=== PATIENT | male | born 1960 | race Caucasian/White ===

== ENCOUNTER 2019-05-09 17:22 | Inpatient (IN) ==
[2019-05-09] MEDS ORDERED: NS 500 ML IV ONE (17:59)
[2019-05-09 18:00] LABS: BASO# 0.03 X1000 (0.0-0.2); BASO% 0.9 % (0.0-0.8); EOS# 0.03 X1000 (0.0-0.7); EOS% 0.9 % (0.0-10.0); HEMATOCRIT 18.2 % (42.0-52.0); HEMOGLOBIN 4.9 g/dL (14.0-18.0); MCHC 26.9 g/dL (33-37); MCV 59.3 FL (81-99); MONO# 0.42 X1000 (0.11-0.59); MONO% 12.6 % (1.7-9.3); MPV 8.6 FL (7.4-10.4); NEUT# 2.05 X1000 (1.4-6.5); NEUT% 61.6 % (42.2-75.2); PLT 424 X1000 (130-400); RBC 3.07 XMIL (4.7-6.1); RDW 19.3 % (11.5-14.5); WBC 3.33 X1000 (4.8-10.8)
[2019-05-09 18:12] LABS: AGAP 16; ALB/GLOB RATIO 1.4; ALBUMIN 4.3 g/dL (3.5-5.0); ALKALINE PHOSPHATASE 77 U/L (32-122); BUN 12 mg/dL (8-22); CALCIUM 9.1 mg/dL (8.8-10.2); CHLORIDE 95 mmol/L (98-107); COSMO 264; CREATININE 1.1 mg/dL (0.7-1.2); ESTIMATED GFR > 60; GLUCOSE 122 mg/dL (70-104); GOT 14 U/L (10-34); GPT 11 U/L (10-44); POTASSIUM 3.6 mmol/L (3.5-5.1); SODIUM 131 mmol/L (136-145); TCO2 20 mmol/L (25-35); TOTAL BILIRUBIN 0.42 mg/dL (0.20-1.00); TOTAL PROTEIN 7.4 g/dL (6.3-8.3)
--- NOTE | 2019-05-09 18:37 | PROVIDER DOCUMENTATION ---
HPI-General Adult - General Chief Complaint: Abnormal Lab[s] Stated Complaint: DR LASHONDA...LABS... Time Seen by Provider: 05/09/19 18:32 Source: patient, family Allergies/Adverse Reactions: Patient Allergies Allergy/AdvReac Type Severity Reaction Status Date / Time No Known Allergies Allergy Verified 05/09/19 18:50 Home Medications: Home Medication List Medication Instructions Recorded Confirmed Last Taken Type Phenytoin 100 mg PO DAILY 05/09/19 05/10/19 Unknown History Phenytoin [Dilantin] 200 mg PO QHS 05/09/19 05/10/19 Unknown History Primidone [Mysoline] 250 mg PO DAILY 05/09/19 05/09/19 Unknown History Primidone [Mysoline] 500 mg PO HS 05/09/19 05/09/19 Unknown History - History of Present Illness -Gen Adult Nature of Presenting Problems: Patient is a 58 year old white male with history of seizure disorder, blindness, and cognitive dysfunction who presents for further evaluation of severe anemia. Just seen at PCP office today and referred to ED for admission. Denies rectal bleeding, hemetemesis. Review of Systems - Adult - REVIEW OF SYSTEMS - ADULT Constitutional: reports: see HPI Eyes: reports: no symptoms reported Ears, Nose, Mouth & Throat: reports: no symptoms reported Cardiovascular: denies: chest pain Respiratory: denies: shortness of breath Gastrointestinal: denies: abdominal pain, nausea, vomiting Genitourinary: denies: dysuria Musculoskeletal: reports: no symptoms reported Integumentary: reports: no symptoms reported Neurological: reports: no symptoms reported Psychiatric: reports: see HPI Endocrine: reports: no symptoms reported Hematologic/Lymphatic: reports: see HPI Allergic/Immunologic: reports: no symptoms reported All Other Systems: Reviewed and Negative Past History - Adult - PAST MEDICAL HISTORY-ADULT Review of Records: reports: Old Records Reviewed, Nursing Assessment Review, Medications Reviewed, Social history reviewed & non-contributory. Major Childhood Illnesses: reports: history unknown Physical Exam-General - PHYSICAL EXAM-ADULT Initial Vital Signs Reviewed: Yes - CONSTITUTIONAL General Appearance: alert, no apparent distress, other (ambulatory, no acute distress, pale oral mucosa,cognitive dysfunction) - EYES Eyes: PERRL/EOMI - HEAD, EARS, NOSE, MOUTH & THROAT HENMT: moist mucous membranes - NECK Neck: non-tender, full range of motion, supple - RESPIRATORY Respiratory: lungs clear - CARDIOVASCULAR Cardiovascular: regular rate, rhythm - GASTROINTESTINAL (ABDOMEN) Abdominal Exam: non tender, soft - LYMPHATIC Lymphatic: no adenopathy - MUSCULOSKELETAL Back Exam: normal inspection, no CVA tenderness Extremity: normal range of motion, non-tender Peripheral Pulses: radial (R): 2+, radial (L): 2+ - SKIN Integumentary: pallor - NEUROLOGIC Neurologic: grossly normal, no motor/sensory deficits - PSYCHIATRIC Psych/Mental Status: oriented x 3, other (cognitive dysfunction) Progress - PLAN OF CARE/RESULTS Progress/Plan/Lab Results: Vital Signs - 8 hr 05/09/19 17:36 Temperature 97.8 F Pulse Rate 94 H Respiratory Rate 16 Blood Pressure 146/76 O2 Sat by Pulse Oximetry 100 Laboratory Results - last 24 hr 05/09/19 05/09/19 17:40 17:40 WBC 3.33 L RBC 3.07 L Hgb 4.9 L* Hct 18.2 L MCV 59.3 L MCH 16.0 L MCHC 26.9 L RDW Std Deviation 19.3 H Plt Count 424 H MPV 8.6 Immature Gran % (Auto) 0.0 Neut % (Auto) 61.6 Lymph % (Auto) 24.0 [place] % (Auto) 12.6 H Eos % (Auto) 0.9 Baso % (Auto) 0.9 H Immature Gran # (Auto) 0.00 Neut # (Auto) 2.05 Lymph # (Auto) 0.80 L [place] # (Auto) 0.42 Eos # (Auto) 0.03 Baso # (Auto) 0.03 Sodium 131 L Potassium 3.6 Chloride 95 L Carbon Dioxide 20 L Anion Gap 16 BUN 12 Creatinine 1.1 Estimated GFR/1.73 m2 > 60 BUN/Creatinine Ratio 11 Glucose 122 H Calculated Osmolality 264 Calcium 9.1 Total Bilirubin 0.42 AST 14 ALT 11 Alkaline Phosphatase 77 Total Protein 7.4 Albumin 4.3 Globulin 3.1 Albumin/Globulin Ratio 1.4 Orders Category Date Time Status Transfuse .Give-Transfuse Care 05/09/19 17:59 Active CBC WITH ELECTRONIC DIFF [HEME] Stat Lab 05/09/19 17:40 Completed CMP [COMPREHENSIVE METABOLIC PANEL] [CHEM] Stat Lab 05/09/19 17:40 Completed LRPC (RED CELLS) [BBK] Stat Lab 05/09/19 18:00 Uncollected Stool [OCCULT BLOOD SCREENING] [STOOL] Stat Lab 05/09/19 18:32 Uncollected TYPE & SCREEN [BBK] Stat Lab 05/09/19 17:41 Results 0.9% Sodium Chloride Inj [Ns] 500 ml Med 05/09/19 17:59 Discontinued IV As Directed mls/hr Result Diagrams: 05/10/19 07:05 05/10/19 07:05 Departure - Departure Date of Disposition Decision: 05/09/19 Time of Disposition Decision: 21:27 DIAGNOSIS: Severe anemia Disposition: ADMITTED INPATIENT 09 Certified Medical Emergency: Emergent Condition: Stable - Critical Care Note This patient required my direct & personal management of CC.: No Attestation - Physician/ STEFFANIE Attestation Patient care was provided by Advanced Practice Provider:: No The physician spent face to face time with patient:: Yes Advanced Practice Provider documentation review:: Supervising physician onsite and consulted in the evaluation and care of this patient. The physician did have a face to face encounter with the patient.
[2019-05-09 19:25] LABS: INR 1.12; PROTIME 14.6 Seconds (11.0-16.0)
[2019-05-09 19:31] LABS: IRON SATURATION 3 %; TIBC 389 ug/dL; TOTAL IRON 13 ug/dL (53-167); UNBOUND IRON 376 ug/dL (112-346)
--- NOTE | 2019-05-09 20:55 | Diag Imaging Result Doc PS360 ---
EXAM: CHEST-PORTABLE HISTORY: Exertional Dyspnea TECHNIQUE: Chest single view COMPARISON: None. FINDINGS: The lungs are well expanded. The heart is not enlarged. The vessels are not distended. There are no infiltrates. No effusion identified. Small hiatal hernia. IMPRESSION: Negative exam. Electronically signed by Russ Wilson 05/09/2019 8:53 PM
--- NOTE | 2019-05-09 21:32 | HISTORY AND PHYSICAL ---
PRIMARY CARE PROVIDER: The patient does not have a primary care provider, though his neurologist is Dr. Norman and his parents report he usually manages all his major medical issues. DATE AND TIME: 05/09/2019 at 2000. CHIEF COMPLAINT: Abnormal labs. HISTORY OF PRESENT ILLNESS: Mr. 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 He was actually at Dr. Norman's office for his routine yearly checkup and blood work and was noted to have anemia with a hemoglobin of 4.9 and hematocrit of 18.2. He was sent to the ER for further evaluation and transfusion. His mother and father were present at bedside. They report that over the last few weeks that he has been more tired, has not had a lot of energy. The patient reports this as well. He also reports that he has had some exertional dyspnea, and dizziness at times. Though he denies any abdominal pain, nausea, vomiting, or diarrhea. He denies any hematemesis, hematochezia or melena. He also denies any obvious hematuria. Other than his dizziness, he denies any headache or feelings of lightheadedness. He denies any chest pain, dysuria, urinary frequency or pain, numbness, tingling or swelling in extremities. They deny him having any previous history of any gastrointestinal bleeding, though his parents did report that last year during his routine physical at Dr. Norman's office that he was noted to have a low hemoglobin then, they believed to be 8. The only illnesses that he has had recently was an upper respiratory infection for which he did get a prescription for what appears to be doxycycline, prednisone and Tessalon Perles on 04/17/2019, though they report his symptoms have cleared up. He does take Dilantin and primidone. The other than this, he has not had any other new medications and they have not made any recent adjustments to any of his medicines. His mother states that he has taken Dilantin and primidone since he was a baby. Upon evaluation in the ER, hemoglobin, hematocrit were, as mentioned above, 4.9 and 18.2. Though, PT and INR were within normal limits. Electrolytes were pretty unremarkable except for he did have a slightly low sodium at 131. He was placed for inpatient admission. REVIEW OF SYSTEMS: A 14 point review of systems was conducted with the patient. All were negative except for pertinent positives mentioned above in HPI. PAST MEDICAL HISTORY: 1. Seizures. 2. Blindness in bilateral eyes. 3. Cognitive dysfunction. PAST SURGICAL HISTORY: Right hip surgery secondary to a fall and fracture in 1996. SOCIAL HISTORY: The patient does live with his parents. He does have a history of cognitive dysfunction. He has no known history of tobacco, alcohol or illicit drug use. FAMILY HISTORY: Positive for his mother having a history of hypertension. His father has a history of heart problems and has had a myocardial infarction. ALLERGIES: Patient reports no known allergies. HOME MEDICATIONS: 1. Dilantin 50 mg p.o. daily. 2. Dilantin 100 mg p.o. at bedtime. 3. Primidone 250 mg p.o. daily. 4. Primidone 500 mg p.o. at bedtime. DIAGNOSTIC DATA/LABORATORY RESULTS: White blood cell count is 3330. Red blood cell count is 3.07, hemoglobin for 4.9, hematocrit 18.2, platelet count is 424,000. PT is 14.6, INR 1.12. Sodium 131, potassium 3.6, chloride 95, serum bicarb 20, BUN is 12, creatinine 1.1 with GFR greater than 60, glucose 122, calcium 9.1. Liver function tests within normal limits. Pending diagnostic studies at this time are the EKG, chest x-ray, urinalysis, Hemoccult stool and anemia profile. PHYSICAL EXAMINATION: VITAL SIGNS: Temperature 98.1 degrees, heart rate 85, respirations 18, blood pressure 134/81, oxygen saturation is 100% on room air. GENERAL: Mr. Mayer is a very pleasant 58-year-old male who was resting in the ER stretcher. He was in no acute distress. He was awake, alert, and able to answer questions appropriately. HEENT: Head is atraumatic, normocephalic. Pupils are equal, round, reactive to light, 3 mm bilaterally and brisk. Conjunctivae were pale. Oral mucosa was moist. Oropharynx is clear. NECK: Supple. Trachea midline. CARDIOVASCULAR: Patient has S1-S2 present. No murmurs, gallops, rubs appreciated with a regular rate and rhythm. PULMONARY: Patient has symmetrical chest expansion bilaterally. Lung sounds are clear to auscultation in bilateral full amos. ABDOMEN: Was soft, nontender, nondistended. Bowel sounds are present in all 4 quadrants, were normoactive. EXTREMITIES: No cyanosis or edema noted. Pulse, motor, and sensory were intact in all extremities radial and pedal pulses were 2+ bilaterally. INTEGUMENTARY: Skin color is slightly pale, though is dry and intact. NEUROLOGICAL: Patient is alert and oriented to person, place, time, and situation. He is able to move all extremities. He does have a known cognitive dysfunction, though at this time there are no focal neurological deficits noted. ASSESSMENT AND PLAN: 1. Severe anemia. The patient is mildly symptomatic. He has been reporting that he has been very fatigued. He has had some occasional dizziness and exertional dyspnea. He does have normal vital signs. He is hemodynamically stable. We are going to transfuse him with 2 units of packed red blood cells. We have ordered an anemia profile as well as a Hemoccult stool. Since he did report some dizziness and exertional dyspnea, we will do a chest x-ray and an EKG. We will await the results of pending diagnostic studies and recheck a CBC in the morning. We will continue to follow. 2. History of seizures. We will continue his previously prescribed Dilantin and primidone. We have ordered a Dilantin level. 3. History of cognitive dysfunction, aware. 4. Deep vein thrombosis prophylaxis. We provided with sequential compression devices. The patient will be placed on the medical floor telemetry. Strict intake and output, vital signs q.4 hours. We will provide some gentle hydration with normal saline at 75 mL per hour x1 bag. Further orders and recommendations pending hospital course, diagnostic studies, and physician evaluation. Dictated by DAMI Lee for Luis Kidd MD I have performed a face to face diagnostic evaluation. Labs/ Xrays- reviewed. Exam Chest- clear, CV- regular, A/P- Anemia- Admit, Monitor H/H- Transfuse [address] Kidd cc: Luis Kidd MD [facility]
--- NOTE | 2019-05-09 21:42 | EKG Report ---
Test Performed on : 05/09/2019 8:57:55 PM Test Reason : Dizziness,Exertional Dyspnea Blood Pressure : / mmHG Vent. Rate : 079 BPM Atrial Rate : 079 BPM P-R Int : 118 ms QRS Dur : 082 ms QT Int : 408 ms P-R-T Axes : 078 069 022 degrees QTc Int : 467 ms Normal sinus rhythm. Nonspecific ST abnormality Abnormal ECG No previous ECGs available Unconfirmed Result
[2019-05-09] MEDS ORDERED: ZOFRAN IV PRN (21:55)
[2019-05-09] MEDS ORDERED: NS 1,000 ML IV ONE (21:55)
[2019-05-09] MEDS ORDERED: TYLENOL PO PRN (21:55)
[2019-05-09 23:56] LABS: URINE SOURCE CLEAN CATCH
[2019-05-09 23:58] LABS: BILIRUBIN URINE NEGATIVE (NEGATIVE); BLOOD URINE NEGATIVE (NEGATIVE); COLOR STRAW; GLUCOSE URINE NEGATIVE (NEGATIVE); KETONE URINE NEGATIVE (NEGATIVE); LEUKOCYTES URINE NEGATIVE (NEGATIVE); NITRITE URINE NEGATIVE (NEGATIVE); PH URINE 6.5; PROTEIN URINE NEGATIVE (NEGATIVE); SP GRAVITY URINE 1.005; TURBIDITY URINE CLEAR (CLEAR); UROBILINOGEN URINE NORMAL (NORMAL)
[2019-05-10] LABS: UR EPITHELIAL CELLS <10 /HPF (<10); URINE BACTERIA NEGATIVE /HPF; URINE RBC <10 /HPF (<10); URINE WBC <10 /HPF (<10)
[2019-05-10] MEDS ORDERED: DILANTIN PO SCH ×4 (00:15→21:00)
[2019-05-10] MEDS ORDERED: NS 500 ML ONE (00:28)
[2019-05-10] MEDS: MYSOLINE PO SCH ×3 (00:45→21:18)
[2019-05-10 07:27] LABS: BASO# 0.03 X1000 (0.0-0.2); BASO% 0.8 % (0.0-0.8); EOS# 0.02 X1000 (0.0-0.7); EOS% 0.6 % (0.0-10.0); HEMATOCRIT 26.1 % (42.0-52.0); HEMOGLOBIN 7.8 g/dL (14.0-18.0); LYMPH% 25.4 % (20.5-51.1); MCH 19.5 PG (27-31); MCHC 29.9 g/dL (33-37); MCV 65.1 FL (81-99); MONO# 0.54 X1000 (0.11-0.59); MONO% 15.2 % (1.7-9.3); MPV 9.2 FL (7.4-10.4); NEUT# 2.06 X1000 (1.4-6.5); PLT 391 X1000 (130-400); RBC 4.01 XMIL (4.7-6.1); WBC 3.55 X1000 (4.8-10.8)
[2019-05-10 07:48] LABS: AGAP 12; BUN 7 mg/dL (8-22); CALCIUM 9.3 mg/dL (8.8-10.2); CHLORIDE 103 mmol/L (98-107); COSMO 274; ESTIMATED GFR > 60; GLUCOSE 97 mg/dL (70-104); POTASSIUM 3.7 mmol/L (3.5-5.1); SODIUM 138 mmol/L (136-145); TCO2 23 mmol/L (25-35)
--- NOTE | 2019-05-10 08:53 | PROGRESS NOTE ---
DATE: 05/10/2019 SUBJECTIVE: Mr. Mayer apparently was at Dr. Norman's office, and they checked blood work and hemoglobin was very low. This is a 58-year-old with a past medical history of seizures and cognitive dysfunction. He does have blindness in both eyes. He was at Dr. Norman's office for routine checkup and workup, and noted anemia with hemoglobin of 4.9 and hematocrit 18.2. He was sent to the emergency room for evaluation. The father and mother were present, and reported that over the past few weeks he has been tired and not had much energy. Patient reports this as well. He has had some exertional dyspnea and dizziness at times. He denies abdominal pain, nausea, vomiting, or diarrhea. Denied any hematemesis. He has not felt bad at all. PAST MEDICAL HISTORY: Once again, seizures, blindness in both eyes, and cognitive dysfunction. He lives with his parents. Right hip surgery secondary to fall and fracture in 1996. PHYSICAL EXAMINATION: General: On exam today, he is awake, alert and pleasant. No complaints. Vital Signs: Temperature 98.3 degrees, pulse 72, respirations 18, and blood pressure 123/73. HEENT: Pupils are equal and round. Lungs: Clear in all lung amos. Cardiovascular: Regular rhythm and rate without murmur or S3. Abdomen: No abdominal tenderness. No distention. No pedal edema. LABORATORY: Blood count this morning, white count 3550, hematocrit 26, hemoglobin was 7.8 with an MCV of 65. Sodium 138, potassium 3.7, chloride 103 BUN 7, and creatinine 1.0 Urinalysis unremarkable. ASSESSMENT AND PLAN: I believe he was transfused 2 units of packed red blood cells. We will ask Gastroenterology to just evaluate. Most likely he has microcytic anemia from occult blood loss, and we will put him on some iron. His B12 was 197 and folate 6.7 so we need to supplement B12 and folate. We need to look at his thyroid functions, and check his iron studies. Ask Gastroenterology to see him. cc: Demetrius Lopez MD
[2019-05-10] MEDS: FOLIC ACID PO SCH ×2 (09:16→21:15)
[2019-05-10] MEDS: VITAMIN B-12 PO SCH (09:16)
[2019-05-10] MEDS ORDERED: PATIENT'S OWN MED PO SCH (09:30)
[2019-05-10] MEDS ORDERED: SODIUM CHLORIDE 0.9% INJ SCH (09:45)
--- NOTE | 2019-05-10 10:39 | Diag Imaging Result Doc PS360 ---
CT ABD/PELVIS W/IV CONT ONLY - 05/10/2019 INDICATION: Anemia COMPARISON: None FINDINGS: The lung bases are clear and the heart size is normal. There is a large hiatal hernia with over half of the stomach up in the chest. The liver, gallbladder, spleen, pancreas, adrenals, and kidneys are normal. There is moderate diffuse constipation throughout the colon. No bowel obstruction or inflammation. Urinary bladder, prostate, and rectum are normal. There is a right femoral neck stabilization therese in good position. There is advanced degeneration of the sacroiliac joints, with essentially complete fusion. There are moderate degenerative changes of the spine. No acute or suspicious bony lesion. IMPRESSION: Large hiatal hernia. Constipation. This exam was performed using automated exposure control, adjustment of mA or kV according to patient size, and/or use of iterative reconstruction technique Electronically signed by Pepe Waddell 05/10/2019 10:37 AM
[2019-05-10] MEDS: PROTONIX IV SCH ×2 (11:28→21:15)
[2019-05-10] MEDS ORDERED: GOLYTELY PO ONE (14:00)
--- NOTE | 2019-05-10 14:56 | GASTROENTEROLOGY CONSULTATION ---
DATE: 05/10/2019 REASON FOR CONSULTATION: Anemia. HISTORY OF PRESENT ILLNESS: Mr. Mayer is a 58-year-old, male with past medical history of seizures and cognitive dysfunction. He is legally blind bilaterally. He had been to Dr. Norman's office for his routine yearly checkup, and the blood work revealed that he had anemia with a hemoglobin of 4.9 and hematocrit of 18.2. He received 2 units of blood, his hemoglobin is 7.8 and 26.1. He came to the ER yesterday with his mother and father. They reported that 3 weeks back he had gone to the ER for cough and was on antibiotics and cough medicine. He received doxycycline, Tessalon, and prednisone. The patient has denied any nausea or vomiting. No fever or chills, but mentions that he has been weak and dizzy with shortness of breath. He has denied any headache. He has also denied any stomach problems. He has never had any GI bleed or any other health issues, other than his seizures, and he takes his Dilantin and primidone as his home medication. PAST MEDICAL HISTORY: Seizures, cognitive dysfunction, blindness in both eyes. PAST SURGICAL HISTORY: Right hip surgery due to a fall and fracture in 1996. ALLERGIES: No known drug allergies. SOCIAL HISTORY: The patient is single, lives with his parents. History of cognitive dysfunction. He has denied any tobacco or alcohol or illicit drug use. FAMILY HISTORY: Mother has hypertension and father has heart problems. HOME MEDICATIONS: Dilantin 100 mg PO am and 200 mg at bedtime. Primidone 250 mg PO am and 500 mg PO at bedtime. REVIEW OF SYSTEMS: As per HPI. Otherwise, 12 point review of systems is negative. PHYSICAL EXAMINATION: Vital Signs: Temperature 98.3 degrees, pulse is 72, respirations 18, blood pressure 123/73, oxygen saturation is 100% on room air. His weight is 156.4 pounds. BMI is 20.1 kg/m2. General: He is alert, oriented x3, in no acute distress, and he is answering all questions appropriately. HEENT: Pale conjunctivae. No icterus. PERRL. Neck: Supple. Cardiovascular: Regular rate and rhythm. No murmurs, rubs, or gallops heard on auscultation. Lungs: Clear to auscultation bilaterally in anterior and posterior amos. Abdomen: Soft, nontender, nondistended. active bowel sounds heard in all 4 quadrants. Extremities: No cyanosis, clubbing, or edema noted. 2+ pulses present bilaterally. Neurological: Alert, oriented x3. Nonfocal. He does have some cognitive dysfunction, but cranial nerves 2-12 grossly intact. LABS: WBC is 3.55, RBC 4.0, hemoglobin 7.8, hematocrit is 26.1, platelet count is 321,000. Sodium is 138, potassium is 3.7, chloride is 102, carbon dioxide is 20, anion gap is 12, BUN is 7, creatinine 1.0. Glucose is 97, calcium is 93. Urinalysis was negative. Chest x-ray shows negative exam. Abdominal CT and pelvis showed large hiatal hernia and constipation. ASSESSMENT: 1. Severe anemia. 2. Hiatal Hernia 3. Constipation 4. History of seizure. 5. History of cognitive dysfunction. 6. Legally blind. PLAN: We have ordered a CT scan. We plan to do an EGD and colonoscopy tomorrow. We will give patient on Protonix 40 IV BID for anemia. Patient is receiving IV fluids 75 mL/hour, folic acid and vitamin B 12 per PCP. He also gets Dilantin and Primidone for his seizure. His H & H was 4.9 and 18.2, now 7.8 and 26.1. He has received 2 units of blood and it has been trending upwards. We will continue to monitor his CBC and BMP. Further plan of care will be based on the EGD and colonoscopy findings. Discussed the risks, benefits, and alternatives of the procedure to patient and family members, patient and family members acknowledges understanding of the instructions and agree to proceed with the above plan of care. We will continue to follow the plan of care per primary care team. This plan was discussed with Dr. Gallego. Thank you for your consult. Please call us with any further questions or concerns. Dictated by DAMI Serrano for Goran Gallego MD cc: Goran Gallego MD I have seen and examined the patient myself and I agree with the above plan of care. Discussed the above with the patient and family at bedside and all questions were answered. Please call us with any further questions. [facility]
[2019-05-11 07:24] LABS: BASO# 0.07 X1000 (0.0-0.2); EOS# 0.08 X1000 (0.0-0.7); EOS% 2.3 % (0.0-10.0); HEMATOCRIT 24.8 % (42.0-52.0); HEMOGLOBIN 7.2 g/dL (14.0-18.0); IRON SATURATION 5 %; LYMPH# 1.01 X1000 (1.2-3.4); LYMPH% 28.5 % (20.5-51.1); MCV 65.4 FL (81-99); MONO% 16.9 % (1.7-9.3); MPV 9.3 FL (7.4-10.4); NEUT# 1.78 X1000 (1.4-6.5); NEUT% 50.3 % (42.2-75.2); PLT 381 X1000 (130-400); RBC 3.79 XMIL (4.7-6.1); RDW 24.8 % (11.5-14.5); RETIC% 0.66 % (0.8-2.1); RETIC-HE 20.5 PG (28.2-36.6); TIBC 358 ug/dL; TOTAL IRON 17 ug/dL (53-167); UNBOUND IRON 341 ug/dL (112-346); WBC 3.54 X1000 (4.8-10.8)
[2019-05-11 07:52] VITALS: BP 115/69
[2019-05-11] MEDS: DILANTIN PO SCH ×2 (08:29→08:31)
[2019-05-11] MEDS: MYSOLINE PO SCH (08:31)
[2019-05-11] MEDS: PROTONIX IV SCH (08:33)
--- NOTE | 2019-05-11 09:31 | PROGRESS NOTE ---
DATE: 05/11/2019 SUBJECTIVE: Mr. Mayer is comfortable, feeling good. Plan is colonoscopy today. OBJECTIVE: Vital signs: Temperature 98.1, pulse 62, respirations 18, blood pressure 115/69. Eyes: Pupils are equal and round. Lungs: Clear in all lung amos. Cardiovascular exam: Regular rhythm and rate without murmur or S3. Abdomen: Soft. Skin: Warm and dry. ASSESSMENT AND PLAN: 1. Severe anemia. 2. Hiatal hernia. 3. History of constipation. 4. History of seizure disorder. 5. History of cognitive dysfunction and legally blind. PLAN: To do an EGD and colonoscopy today. BLOOD WORK: His blood work today, hematocrit is 24, hemoglobin 7.2. He was supplemented B12 and folate, and abdominal and pelvic CT large hiatal hernia, constipation, and that is really it. REVIEW OF HIS ORDERS: He is on Protonix 40 mg IV q.12, folic acid 1 mg twice a day, cyanocobalamin 500 mcg p.o. daily, and myocilin 500 mg at bedtime, 250 mg in the morning, Dilantin 200 mg at bedtime and 100 mg in the morning. We will see what colonoscopy and EGD show. cc: Demetrius Lopez MD
[2019-05-11] MEDS ORDERED: DIPRIVAN 1% ONE (09:52)
[2019-05-11] MEDS ORDERED: FENTANYL ONE (09:52)
--- NOTE | 2019-05-11 13:40 | OPERATIVE NOTE ---
PROCEDURE DATE: 05/11/2019 PROCEDURE: 1. Colonoscopy. 2. Esophagogastroduodenoscopy. PREOPERATIVE DIAGNOSIS: Moderately severe microcytic hypochromic anemia secondary to chronic blood loss. POSTOPERATIVE DIAGNOSES: 1. Large hiatal hernia with Joey lesions. 2. Normal colonoscopy. DESCRIPTION OF PROCEDURE: After informed consent and adequate intravenous sedation, the scope introduced in the esophagus, which was normal except mild esophagitis. There is a large hiatal hernia with Joey lesions. However, there is no active bleeding. Duodenum is normal. At this point, the scope introduced in the rectum advanced all the way in cecum. Entire colon is carefully examined. No AVMs or any colon polyps or malignancy. Therefore, the patient has chronic blood loss from this large hiatal hernia. RECOMMENDATION: PPI and iron supplements indefinitely. If he continues to be anemic after a year, we probably need a fundoplication but currently patient is not having any symptoms according to father. I simply recommend iron supplements indefinitely. cc: Caesar Sheridan MD
[2019-05-11] MEDS: FOLIC ACID PO SCH (14:20)
[2019-05-11] MEDS: VITAMIN B-12 PO SCH (14:21)
--- NOTE | 2019-05-11 17:46 | DISCHARGE SUMMARY ---
ADMISSION DATE: 05/09/2019 DISCHARGE DATE: 05/11/2019 HISTORY OF PRESENT ILLNESS /HOSPITAL COURSE: Mr. Chan is a 58-year-old who stays with his parents, and is usually in pretty good state of health. He had seen his neurologist and they noticed that his hemoglobin was markedly low, hemoglobin of 4.9, hematocrit 18.2. He had really no symptoms, pain or blood that he has noticed or dark stools, but he came in, and we gave him 2 units of packed red blood cells. PAST MEDICAL HISTORY: 1. Seizures. 2. Blindness in bilateral eyes. 3. Cognitive dysfunction. PAST SURGICAL HISTORY: Right hip surgery secondary to fall and fracture in 1996. He underwent EGD and colonoscopy per Dr. Sheridan and really was unremarkable. PLAN: I will put him on some iron since he had a microcytic picture, and his hemoglobin and hematocrit, hemoglobin was 7.2, hematocrit was 24. He will be on ferrous sulfate 325 mg twice a day, folic acid 1 mg p.o. b.i.d. We also noticed his folate and B12 were low, so we are going to supplement. He will take continue to take his Dilantin 100 mg a day, 200 at night, and Mysoline 500 mg p.o. every night at bedtime, vitamin B12 at 500 mcg p.o. daily. Follow up with primary care physician and follow up with his blood counts with his primary care physician as well. cc: Demetrius Lopez MD
[2019-05-11] MEDS ORDERED: FERROUS SULFATE PO SCH (21:00)
[2019-05-12] MEDS ORDERED: PRILOSEC PO SCH (07:00)
== END 2019-05-11 17:44 | disposition home or self-care (01) | DRG 379 ==
LOC: ED 17:22 → SUATTDRO 21:02 → 3N 21:02
PROVIDERS: ATTEND Emergency Medicine